=== PATIENT | female | born 1985 | race Caucasian/White ===

== ENCOUNTER 2018-09-02 19:29 | Emergency (ER) | payer OTHER ==
[~2018-09-02] VITALS: Ht 172.7 cm; Wt 63.5 kg
[2018-09-02 19:58] VITALS: BP 102/65
--- NOTE | 2018-09-02 21:09 | NUR ---
URINE COLLECTED, SENT TO LAB
[2018-09-02 21:37] LABS: APPEARANCE,URINE Clear (CLEAR); BILIRUBIN,URINE Negative (NEGATIVE); BLOOD, URINE Negative Ery/uL (NEGATIVE); COLOR,URINE Yellow (YELLOW); KETONES,URINE Negative (NEGATIVE); LEUKOCYTE ESTERASE ,URINE Negative (NEGATIVE); NITRITE, URINE Negative (NEGATIVE); PROTEIN,URINE Negative (NEGATIVE); UGLUCOSE Negative (NEGATIVE); UROBILINOGEN,URINE 0.2 EU/dL (0.2)
== END 2018-09-02 22:52 | disposition home or self-care (01) ==
LOC: ER 19:38
DX: L29.9 Pruritus, unspecified (principal); K64.4 Residual hemorrhoidal skin tags; E03.9 Hypothyroidism, unspecified; Z88.1 Allergy status to other antibiotic agents
CPT/HCPCS: 81000-TC

== ENCOUNTER 2019-01-14 01:05 | Emergency (ER) | payer OTHER ==
[~2019-01-14] VITALS: Ht 172.7 cm; Wt 63.5 kg
[2019-01-14] MEDS ORDERED: IBUPROFEN 400 MG TABLET PO ONE (02:00)
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
[2019-01-14] MEDS ORDERED: IBUPROFEN 400 MG TABLET ONE (02:07)
--- NOTE | 2019-01-14 02:25 | NUR ---
ALL ORDERED MEDS GIVEN
--- NOTE | 2019-01-14 02:37 | NUR ---
TEST URINE CAME BACK NEGATIVE
--- NOTE | 2019-01-14 03:00 | NUR ---
Pt TAKEN FOR XRAY
--- NOTE | 2019-01-14 03:10 | NUR ---
Pt RETURNED FROM XRAY
--- NOTE | 2019-01-14 03:24 | NUR ---
CALLED [facility] FOR PENDING XRAYS
--- NOTE | 2019-01-14 03:44 | NUR ---
PT OK TO DISCHARGE PER DR CASTAÑEDA. Patient discharged to home in stable condition. Written and verbal after care instructions given. Patient verbalizes understanding of instruction.Patient is awake and alert to self, day, and place. PT ambulatory with a steady gait
[2019-01-14 04:52] VITALS: BP 116/72
== END 2019-01-14 03:45 | disposition home or self-care (01) ==
LOC: ER 01:06
DX: S46.811A Strain of other muscles, fascia and tendons at shoulder and upper arm level, right arm, initial encounter (principal); S16.1XXA Strain of muscle, fascia and tendon at neck level, initial encounter; S50.11XA Contusion of right forearm, initial encounter; E03.9 Hypothyroidism, unspecified; Z88.8 Allergy status to other drugs, medicaments and biological substances; V49.49XA Driver injured in collision with other motor vehicles in traffic accident, initial encounter; Y93.89 Activity, other specified; Y92.410 Unspecified street and highway as the place of occurrence of the external cause; Y99.8 Other external cause status
CPT/HCPCS: 72050-TC; 73010-TC; 73090-TC; 84703-TC